=== PATIENT | male | born 1945 | race Two or more races ===

== ENCOUNTER → 2017-05-26 | Outpatient (CLI) | payer MEDICARE, MEDICAID | LOC: LNHI 15:37 | DX: I25.10 Atherosclerotic heart disease of native coronary artery without angina pectoris (principal); E11.65 Type 2 diabetes mellitus with hyperglycemia; I31.3 Pericardial effusion (noninflammatory); I70.213 Atherosclerosis of native arteries of extremities with intermittent claudication, bilateral legs; R09.89 Other specified symptoms and signs involving the circulatory and respiratory systems ==